=== PATIENT | male | born 1990 | race Caucasian/White ===

== ENCOUNTER 2021-10-22 03:07 | Emergency (ER) | payer SELFPAY ==
[2021-10-22] MEDS ORDERED: LORazepam 1 MG Tab PO ONE (03:09)
[2021-10-22] MEDS ORDERED: Sodium Chloride 0.9% 10 ML Syringe FLUSH PRN (03:09)
[2021-10-22 03:40] VITALS: BP 143/81; PULSE 104
[2021-10-22] MEDS ORDERED: Dexamethasone 4 MG/ML SDV IVPUSH ONE (03:53)
[2021-10-22] MEDS ORDERED: Prochlorperazine 10 MG/2 ML SDV IVPUSH ONE (03:53)
[2021-10-22] MEDS ORDERED: Ketorolac 30 MG/ML SDV IVPUSH ONE (03:53)
[2021-10-22 04:07] LABS: CORONAVIRUS COVID-19 NAA POSITIVE (NEGATIVE)
== END 2021-10-22 06:58 | disposition home or self-care (01) ==
LOC: JP.ED 03:07
DX: U07.1 COVID-19 (principal); R51.9 Headache, unspecified; Z79.899 Other long term (current) drug therapy
CPT/HCPCS: 0241U; 36415; 80053; 85025; 86140; 96374; 96375; 99284; A9270; J0780; J1100; J1885; J3490